=== PATIENT | female | born 1980 | race Hispanic/Latino ===

== ENCOUNTER 2019-08-02 22:31 | Emergency (ER) | payer BC, OTHER ==
--- OUTSIDE RECORDS SUMMARY | 2019-08-02 22:34 | XMS REPORT ---
:1980 Author Organization eClinicalWorks Care Team Providers Name Role Phone Maddie Tuttle Provider Role Unavailable Allergies No Known Allergies Problems Problem Type Condition Code Onset Dates Condition Status Problem Diabetes mellitus without E11.9 Active complication Medications Medication Code Code Instructions Start End Status Dosage System Date Date Xigduo XR [facility] 22412544460 10-1000 MG Active 1 tablet Orally Once a day Glimepiride [facility] 46535234407 2MG Orally Once Active 1 tablet a day with breakfast or the first main meal of the day Results No Known Results Summary Purpose eClinicalWorks Submission
--- OUTSIDE RECORDS SUMMARY | 2019-08-02 22:34 | XMS REPORT ---
:1980 Author Organization eClinicalWorks Care Team Providers Name Role Phone Maddie Tuttle Provider Role Unavailable Allergies, Adverse Reactions, Alerts Substance Reaction Event Type N.K.D.A. Info Not Available Non Drug Allergy Problems Problem Type Condition Code Onset Dates Condition Status Assessment Diabetes mellitus without E11.9 Active complication Problem Diabetes mellitus without E11.9 Active complication Medications Medication Code System Code Instructions Start End Date Status Dosage Date Glimepiride [facility] 10458708770 2MG Active TAKE ONE TABLET BY MOUTH ONCE DAILY Sprintec 28 [facility] 57466008048 0.25-35 MG-MCG Active 1 tablet Orally Once a day Xigduo XR [facility] 52509077500 10-1000 MG Active 1 tablet Orally Once a day Results No Known Results Summary Purpose eClinicalWorks Submission
--- OUTSIDE RECORDS SUMMARY | 2019-08-02 22:34 | XMS REPORT ---
:1980 Author Organization eClinicalWorks Care Team Providers Name Role Phone Melly Tuttle Provider Role Unavailable Allergies No Known Allergies Problems Problem Type Condition Code Onset Dates Condition Status Problem Diabetes mellitus without E11.9 Active complication Medications No Known Medications Results No Known Results Summary Purpose eClinicalWorks Submission
--- OUTSIDE RECORDS SUMMARY | 2019-08-02 22:34 | XMS REPORT ---
:1980 Author Organization eClinicalWorks Care Team Providers Name Role Phone Melly Tuttle Provider Role Unavailable Allergies, Adverse Reactions, Alerts Substance Reaction Event Type N.K.D.A. Info Not Available Non Drug Allergy Problems Problem Type Condition Code Onset Dates Condition Status Assessment Diabetes mellitus without E11.9 Active complication Problem Diabetes mellitus without E11.9 Active complication Medications Medication Code System Code Instructions Start End Date Status Dosage Date Sprintec 28 [facility] 52256387990 0.25-35 MG-MCG Active 1 tablet Orally Once a day Glimepiride [facility] 31547029032 2MG Active TAKE ONE TABLET BY MOUTH ONCE DAILY Xigduo XR [facility] 96737536613 10-1000 MG Active 1 tablet Orally Once a day Results No Known Results Summary Purpose eClinicalWorks Submission
[2019-08-02] MEDS ORDERED: TRAMADOL HCL 50 MG TAB ONE (23:42)
--- NOTE | 2019-08-03 00:22 | EDPHYS ---
Physician Documentation [facility] Name: Kim Jaeger Age: 38 yrs Sex: Female : 1980 Arrival Date: 08/02/2019 Time: 22:34 Bed 7 Private MD: ED Physician Shahab Del Rosario HPI: 08/03 00:17 This 38 yrs old Female presents to ER via Ambulatory with complaints of Knee tw4 Pain, Knee Injury. 00:17 The patient presents with an injury. The complaints affect the right knee. Context: The tw4 problem was sustained at home. Onset: The symptoms/episode began/occurred yesterday. Modifying factors: The symptoms are alleviated by remaining still, the symptoms are aggravated by movement, weight bearing, bending knee. Associated signs and symptoms: The patient has no apparent associated signs or symptoms. Severity of symptoms: At their worst the symptoms were moderate, in the emergency department the symptoms are unchanged. 04:31 Treatment prior to arrival includes: no previous treatment. 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 - Social history:: Smoking status: Patient/guardian denies using tobacco. - Ebola Screening: : Patient negative for fever greater than or equal to 101.5 degrees Fahrenheit, and additional compatible Ebola Virus Disease symptoms. ROS: 08/03 04:31 Constitutional: Negative for fever, chills, and weight loss, Eyes: Negative for injury, tw4 pain, redness, and discharge, Cardiovascular: Negative for chest pain, palpitations, and edema, Respiratory: Negative for shortness of breath, cough, wheezing, and pleuritic chest pain, Abdomen/GI: Negative for abdominal pain, nausea, vomiting, diarrhea, and constipation, Back: Negative for injury and pain, Skin: Negative for injury, rash, and discoloration, Neuro: Negative for headache, weakness, numbness, tingling, and seizure. MS/extremity: Positive for injury or acute deformity, contusion, decreased range of motion, pain, tenderness, of the right knee, Negative for abrasion, bite, deformity, ecchymosis, erythema, laceration. Exam: 04:31 Constitutional: This is a well developed, well nourished patient who is awake, alert, tw4 and in no acute distress. Head/Face: Normocephalic, atraumatic. Chest/axilla: Normal chest wall appearance and motion. Nontender with no deformity. No lesions are appreciated. Cardiovascular: Regular rate and rhythm with a normal S1 and S2. No gallops, murmurs, or rubs. Normal PMI, no JVD. No pulse deficits. Respiratory: Lungs have equal breath sounds bilaterally, clear to auscultation and percussion. No rales, rhonchi or wheezes noted. No increased work of breathing, no retractions or nasal flaring. Abdomen/GI: Soft, non-tender, with normal bowel sounds. No distension or tympany. No guarding or rebound. No evidence of tenderness throughout. 04:31 Musculoskeletal/extremity: Extremities: noted in the right knee: decreased ROM, pain. Vital Signs: 08/02 22:47 BP 142 / 83; Pulse 70; Resp 16 S; Temp 98.0(O); Pulse Ox 99% on R/A; Weight 77.11 kg jd3 (R); Height 5 ft. 3 in. (160.02 cm) (R); Pain 6/10; 23:35 BP 109 / 78; Pulse 83; Resp 15 S; Pulse Ox 100% on R/A; jd3 22:47 Body Mass Index 30.11 (77.11 kg, 160.02 cm) jd3 MDM: 22:54 Patient medically screened. tw4 08/03 04:31 Differential diagnosis: contusion. Data reviewed: vital signs, nurses notes. Data tw4 reviewed: radiologic studies, plain films. Test interpretation: by ED physician or midlevel provider: ECG. Counseling: I had a detailed discussion with the patient and/or guardian regarding: the historical points, exam findings, and any diagnostic results supporting the discharge/admit diagnosis, radiology results. Medication response: tramadol. Response to treatment: the patient's symptoms have mildly improved after treatment, and as a result, I will discharge patient. Special discussion: I discussed with the patient/guardian in detail that at this point there is no indication for admission to the hospital. It is understood, however, that if the symptoms persist or worsen the patient needs to return immediately for re-evaluation. 08/02 23:09 Order name: Knee Right 3 View XRAY jd3 08/03 00:17 Order name: Knee Immobilizer; Complete Time: 00:33 tw4 Administered Medications: 08/02 23:43 Drug: traMADol 50 mg Route: PO; jd3 08/03 00:33 Follow up: Response: No adverse reaction; RASS: Alert and Calm (0) jd3 Disposition: 08/03/19 00:21 Discharged to Home. Impression: Contusion of right knee. - Condition is Stable. - Discharge Instructions: Contusion. - Prescriptions for Ibuprofen 800 mg Oral Tablet - take 1 tablet by ORAL route every 8 hours As needed take with food; 30 tablet. Tramadol 50 mg Oral Tablet - take 1 tablet by ORAL route every 8 hours as needed; 12 tablet. - Medication Reconciliation Form, Thank You Letter, Antibiotic Education, Prescription Opioid Use form. - Follow up: Private Physician; When: Upon discharge from the Emergency Department; Reason: Recheck today's complaints, Continuance of care. - Problem is new. - Symptoms have improved. Signatures: Dispatcher [employer] Josafat Valles RN RN jd3 Wadley, Terrence, MD MD tw4 Corrections: (The following items were deleted from the chart) 00:26 08/02 22:56 Knee Left 3 View+RAD.RAD.BRZ ordered. [facility] 08/03 00:35 00:21 08/03/2019 00:21 Discharged to Home. Impression: Contusion of right knee. jd3 Condition is Stable. Forms are Medication Reconciliation Form, Thank You Letter, Antibiotic Education, Prescription Opioid Use. Follow up: Private Physician; When: Upon discharge from the Emergency Department; Reason: Recheck today's complaints, Continuance of care. Problem is new. Symptoms have improved. tw4
--- NOTE | 2019-08-03 00:22 | ER ---
Nurse's Notes [facility] Name: Kim Jaeger Age: 38 yrs Sex: Female : 1980 Arrival Date: 08/02/2019 Time: 22:34 Bed 7 Private MD: Diagnosis: Contusion of right knee Presentation: 08/02 22:44 Presenting complaint: Patient states: "I [place] movie [place] and my jd3 right knee is really hurting. I can walk ok, but it hurts a lot and it is hard to bend it.". Transition of care: patient was not received from another setting of care. Onset of symptoms was August 02, 2019. Risk Assessment: Do you want to hurt yourself or someone else? Patient reports no desire to harm self or others. Initial Sepsis Screen: Does the patient meet any 2 criteria? No. Patient's initial sepsis screen is negative. Does the patient have a suspected source of infection? No. Patient's initial sepsis screen is negative. Care prior to arrival: None. 22:44 Method Of Arrival: Ambulatory [facility] 22:44 Acuity: LEXI 4 jd3 Triage Assessment: 22:50 Injury Description: fall onto right knee. 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 - Social history:: Smoking status: Patient/guardian denies using tobacco. - Ebola Screening: : Patient negative for fever greater than or equal to 101.5 degrees Fahrenheit, and additional compatible Ebola Virus Disease symptoms. Screenin:50 Abuse screen: Denies threats or abuse. Nutritional screening: No deficits noted. jd3 Tuberculosis screening: No symptoms or risk factors identified. Fall Risk Ambulatory Aid- None/Bed Rest/Nurse Assist (0 pts). Gait- Normal/Bed Rest/Wheelchair (0 pts) Mental Status- Oriented to own ability (0 pts). Assessment: 22:48 General: Appears in no apparent distress. uncomfortable, Behavior is calm, cooperative, jd3 appropriate for age. Pain: Complains of pain in right knee Quality of pain is described as aching, tender. Neuro: Level of Consciousness is awake, alert, obeys commands, Oriented to person, place, time, situation. Cardiovascular: Denies chest pain, Capillary refill < 3 seconds Patient's skin is warm and dry. Respiratory: Airway is patent Respiratory effort is even, unlabored, Respiratory pattern is regular, symmetrical, Denies cough, shortness of breath. GI: No signs and/or symptoms were reported involving the gastrointestinal system. : No signs and/or symptoms were reported regarding the genitourinary system. EENT: No signs and/or symptoms were reported regarding the EENT system. Derm: Skin is intact, Skin is dry, Skin is normal, Skin temperature is warm. Musculoskeletal: Circulation, motion, and sensation intact. Range of motion: limited in right knee. 23:36 Reassessment: Patient appears in no apparent distress at this time. No changes from [facility] previously documented assessment. Patient and/or family updated on plan of care and expected duration. Pain level reassessed. Patient is alert, oriented x 3, equal unlabored respirations, skin warm/dry/pink. awaiting x-ray. 08/03 00:34 Reassessment: Patient appears in no apparent distress at this time. Patient and/or jd3 family updated on plan of care and expected duration. Pain level reassessed. Patient is alert, oriented x 3, equal unlabored respirations, skin warm/dry/pink. reported understanding of discharge instructions. Patient states feeling better. Vital Signs: 08/02 22:47 BP 142 / 83; Pulse 70; Resp 16 S; Temp 98.0(O); Pulse Ox 99% on R/A; Weight 77.11 kg jd3 (R); Height 5 ft. 3 in. (160.02 cm) (R); Pain 6/10; 23:35 BP 109 / 78; Pulse 83; Resp 15 S; Pulse Ox 100% on R/A; jd3 22:47 Body Mass Index 30.11 (77.11 kg, 160.02 cm) jd3 ED Course: 22:34 Patient arrived in ED. cf2 22:44 Josafat Gonzales RN is Primary Nurse. jd3 22:46 Triage completed. jd3 22:48 Arm band placed on. jd3 22:50 Patient has correct armband on for positive identification. Bed in low position. Call jd3 light in reach. Side rails up X 1. Adult w/ patient. 22:50 Ice pack to injury. jd3 22:54 Shahab Del Rosario MD is Attending Physician. tw4 08/03 00:26 Knee Right 3 View XRAY In Process Unspecified. EDMS 00:34 No provider procedures requiring assistance completed. Patient did not have IV access jd3 during this emergency room visit. Administered Medications: 08/02 23:43 Drug: traMADol 50 mg Route: PO; jd3 08/03 00:33 Follow up: Response: No adverse reaction; RASS: Alert and Calm (0) jd3 Outcome: 00:21 Discharge ordered by MD. tw4 00:34 Discharged to home ambulatory, with family. jd3 00:34 Condition: stable 00:34 Discharge instructions given to patient, family, Instructed on discharge instructions, follow up and referral plans. medication usage, Demonstrated understanding of instructions, follow-up care, medications, Prescriptions given X 2. 00:35 Patient left the ED. jd3 Signatures: Dispatcher [employer] Josafat Valles RN RN jd3 Shahab Del Rosario MD MD tw4 Mandi Lawrence cf2 Corrections: (The following items were deleted from the chart) 08/02 22:55 22:48 Musculoskeletal: Circulation, motion, and sensation intact. Range of motion: jd3 limited in left knee jd3
[2019-08-03 03:35] VITALS: TEMP 98
[2019-08-03 03:36] VITALS: BP 109/78; O2SAT 100
--- NOTE | 2019-08-03 08:11 | RAD REPORT ---
EXAM DESCRIPTION: RAD - Knee Right 3 View - 08/03/2019 12:02 am CLINICAL HISTORY: Right knee pain status post injury FINDINGS: No fracture or dislocation is seen.
== END 2019-08-03 00:35 | disposition home or self-care (01) ==
LOC: ER 22:31
DX: S80.01XA Contusion of right knee, initial encounter (principal); W18.30XA Fall on same level, unspecified, initial encounter; Y93.89 Activity, other specified; Y92.26 Movie house or cinema as the place of occurrence of the external cause
CPT/HCPCS: 99283

== ENCOUNTER 2020-05-07 19:06 | Emergency (ER) | payer BC ==
--- OUTSIDE RECORDS SUMMARY | 2020-05-07 19:08 | XMS REPORT ---
:1980 Author Organization eClinicalWorks Care Team Providers Name Role Phone Maddie Tuttle Provider Role Unavailable Allergies No Known Allergies Problems Problem Type Condition Code Onset Dates Condition Statu s Problem Diabetes mellitus without E11.9 Ac tive complication Problem BMI 31.0-31.9,adult Z68.31 Active Medications No Known Medications Results No Known Results Summary Purpose eClinicalWorks Submission
--- OUTSIDE RECORDS SUMMARY | 2020-05-07 19:08 | XMS REPORT | Summary of Care ---
:1980 Author Organization [facility] Address [address] [place] [address] Care Team Providers Name Role Phone Maddie Tuttle Primary Care Provider Reason for Visit Reason Comments New Evaluation (Routine) Status Reason Specialty Diagnoses / Referred By Referred To Procedures Contact Contact Closed IM-ENDOCRINOLOGY,DIAB Diagnoses New & DM Juanito Wharton Wentong, MD ETES & METABOLISM / Procedures CONSULT/REFERRAL ENDOCRINOLOGY NEW VISIT (FIRST TIME) B [address] [facility] [address] [facility] Diabetes & [place] [phone] Phone: Fax: Encounter Details Date Type Department Care Team Description 04/30/2020 Office Visit [facility] Shruthi Soto MD Uncontrolled type 2 Endocrinology- 2660 [facility] diabetes mellitus with [facility] hyperglycemia (Primary [address] [place], [place] [address]) [address], [id number] [place] [address] [phone] Allergies No Known Allergiesdocumented as of this encounter (statuses as of 04/30/2020) Medications Medication Sig Dispensed Refills Start Date End Date Status glimepiride 2 mg Take 1 tablet 90 tablet 1 04/30/2020 Active tabletIndications: by mouth with Uncontrolled type evening meal. 2 diabetes mellitus with hyperglycemia dulaglutide inject 1.5 mg 4 Syringe 4 04/30/2020 Act irina (TRULICITY) 1.5 under the mg/0.5 mL skin weekly. PnIjIndications: Uncontrolled type 2 diabetes mellitus with hyperglycemia metformin ER 750 Take 2 180 tablet 1 04/30/2020 A ctive mg 24 hr tablets by tabletIndications: mouth daily Uncontrolled type with 2 diabetes breakfast. mellitus with hyperglycemia Lancets (MICROLET Use as 100 Each 1 04/30/2020 A ctive LANCET) directed MiscIndications: daily Uncontrolled type 2 diabetes mellitus with hyperglycemia CONTOUR NEXT TEST Use as 100 Strip 1 04/30/2020 A ctive STRIPS directed stripIndications: daily Uncontrolled type 2 diabetes mellitus with hyperglycemia XIGDUO XR 10-1,000 TAKE 1 TABLET 0 02/11/2020 Discontinued mg TBph BY MOUTH ONCE 0 DAILY FOR 90 DAYS TRULICITY 0.75 0 04/29/2020 Disc ontinued mg/0.5 mL PnIj 0 glimepiride 2 mg 0 03/20/2020 Di scontinued tablet 0 (Reorder) blood sugar Use as 100 Strip 1 04/30/2020 Discont inued diagnostic directed 0 (Error) (ASCENSIA daily MICROFILL) stripIndications: Uncontrolled type 2 diabetes mellitus with hyperglycemia documented as of this encounter (statuses as of 04/30/2020) Active Problems Not on filedocumented as of this encounter (statuses as of 04/30/2020) Social History Tobacco Use Types Packs/Day Years Used Date Never Smoker Smokeless Tobacco: Never Used Alcohol Use Drinks/Week oz/Week Comments Yes Sex Assigned at Date Recorded Not on file COVID-19 Exposure Response Date Recorded In the last month, have you been in contact with No / Unsure 04/30/2020 1:38 PM CDT someone who was confirmed or suspected to have Coronavirus / COVID-19? documented as of this encounter Last Filed Vital Signs Vital Sign Reading Time Taken Comments Blood Pressure 112/80 04/30/2020 1:53 PM CDT Pulse 77 04/30/2020 1:53 PM CDT Temperature - - Respiratory Rate - - Oxygen Saturation 98% 04/30/2020 1:53 PM CDT Inhaled Oxygen Concentration - - Weight 77.7 kg (171 lb 6.4 oz) 04/30/2020 1:53 PM CDT Height 157.5 cm (5' 2") 04/30/2020 1:53 PM CDT Body Mass Index 31.35 04/30/2020 1:53 PM CDT documented in this encounter Patient Instructions Patient InstructionsShruthi Soto MD - 04/30/2020 1:30 PM CDT Restart glimepiride 2mg with dinner Increase Trulicity to 1.5mg weekly Stop Xugdo Start metformin Er 750mg two pills a day Target for sugar control Premeal glucose concentrations 90-110 mg/dL One-hour postmeal glucose concentrations no higher than 140 mg/dL Two-hour postmeal glucose concentrations no higher than 120 mg/dL A1C at 6 percent documented in this encounter Progress Notes Shruthi Soto MD - 04/30/2020 1:30 PM CDT CC establish care for type 2 DM HPI Patient is a 39 year old female who is here today for Diabetes Mellitus Type 2. Patient's diabetes is complicated by atherogenic diet and sedentary lifestyle. DM was diagnosed in 2009 and A1c has been in 7s range. She has been taking glimepiride and Xigduo in past few years. Glimepiride was switched to Trulicity in 02/2020 after A1C checked at 7.9 % Patient has no acute problems today. Patient has not checks blood glucoses for a while due to meternot functioning. New meter provided today The patient is not having problems with symptomatic hypoglycemia. Patient is compliant with medication regimen. Taking Trulicity 0.75mg weekly and Xigduo Xr 10-1000mg daily . However, she had frequent yeast infection this year which promoted Endo referral by her GYNDr Dio Patient is noncompliant with diet/exercise regimen.She still eats pizza/ sandwich as main meal Patient states she is still trying to conceive DIABETIC HEALTH MAINTENANCE Last Ophthalmology visit was 2 years no retinopathy in past . Patient on NEREYDA/ARB therapy - Contraindicated, trying to conceive Patient on ASA therapy - Contraindicatedtrying to conceive. Patient on Statin/Fibrate therapy - Contraindicated.trying to conceive Patient instructed about daily feet exams, last sensation exam was 04/30/2020 Patient has received Nutrition/Diet/Diabetes Education on 04/30/2020 HISTORY Past Medical History: Diagnosis Date Diabetes mellitus Past Surgical History: Procedure Laterality Date CHOLECYSTECTOMY Family History Problem Relation Age of Onset Diabetes Mother High cholesterol Mother Hypertension Mother Social History Socioeconomic History Marital status: Single Spouse name: Not on file Number of children: Not on file Years of education: Not on file Highest education level: Not on file Occupational History Not on file Social Needs Financial resource strain: Not on file Food insecurity Worry: Not on file Inability: Not on file Transportation needs Medical: Not on file Non-medical: Not on file Tobacco Use Smoking status: Never Smoker Smokeless tobacco: Never Used Substance and Sexual Activity Alcohol use: Yes Drug use: Never Sexual activity: Not on file Lifestyle Physical activity Days per week: Not on file Minutes per session: Not on file Stress: Not on file Relationships Social connections Talks on phone: Not on file Gets together: Not on file Attends tenriism service: Not on file Active member of club or organization: Not on file Attends meetings of clubs or organizations: Not on file Relationship status: Not on file Intimate partner violence Fear of current or ex partner: Not on file Emotionally abused: Not on file Physically abused: Not on file Forced sexual activity: Not on file Other Topics Concern Not on file Social History Narrative Not on file REVIEW OF SYSTEMS Constitutional: denies weight change, denies fatigue and hair loss Eyes: denies blurry vision, denies diplopia and denies pain. Neck: denies pain, denies swollen glands Cardiovascular: denies chest pain , denies irregular pulse and denies palpitations. Respiratory: denies dyspnea on exertion and denies shortness of breath. Gastrointestinal: denies abdominal pain, denies constipation and denies diarrhea. Genitourinary: + frequent yeast infection and denies dysuria. Musculoskeletal: denies back pain, denies muscle pain and denies weakness. Skin: denies dry skin and denies hair changes. Neuro: denies numbness , denies tingling and denies tremor. Psych: negative. Endocrine: denies goiter, denies hair loss, denies intolerance to cold, denies intolerance to heat, denies polydipsia, denies polyphagia and denies polyuria. PHYSICAL EXAM BP 112/80 (BP Location: Left arm, Patient Position: Sitting, BP CUFF SIZE: Adult Large) | Pulse 77| Ht 5' 2" (1.575 m) | Wt 171 lb 6.4 oz (77.7 kg) | SpO2 98% | BMI 31.35 kg/m General: alert, oriented times three, no apparent distress, appearing age appropriate. Skin: skin color and turgor are normal Head: normocephalic, no masses, lesions, tenderness or abnormalities. Eyes: anicteric sclera, pupils are equally round and reactive to light. Neck: +acanthosis nigricans Thyroid: normal size and consistency to palaption Lungs: good diaphragmatic excursion, lungs clear to auscultation bilaterally. Heart: regular rate and rhythm, no murmurs, gallops or rubs. Abdomen: abdomen soft, non-tender, normal active bowel sounds, + obese. Neuro: unremarkable without focal findings. Extremities/Musculoskeletal: no cyanosis, no edema . Sensory exam of the foot is normal. Monofilament exam with sensation Right: 5/5, Left: 5/5. Lesions absent Ulcers Absent Peripheral pulses present 2+. Outside lab 02/2020 CMP/CBC was done per patient A1C=7.9% ASSESSMENT/PLAN 1. Uncontrolled type 2 diabetes mellitus with hyperglycemia -A1C (target=6-7%): 7.9 (03/09) not well control in past few years 2/2 less compliance -glucose range: not checking - without hypoglycemia -complication: none -medication limitation: Xigduo cause yeast infection. Patient also trying to conceive will avoid meds with potential defect -diet:high carbs at time -exercise: no regular exercise Plan -reinterated to check glucose daily alternating fasting and 2 hours post meals -urged compliance with diet/exercise - discussed the need for better control in DM given patient is trying to conceive - glimepiride 2 mg tablet; Take 1 tablet by mouth with evening meal. Dispense: 90 tablet; Refill: 1 - dulaglutide (TRULICITY) 1.5 mg/0.5 mL PnIj; inject 1.5 mg under the skin weekly. Dispense: 4 Syringe; Refill: 4 - metformin ER 750 mg 24 hr tablet; Take 2 tablets by mouth daily with breakfast. Dispense: 180 tablet; Refill: 1 - Lancets (MICROLET LANCET) Misc; Use as directed daily Dispense: 100 Each; Refill: 1 - CONTOUR NEXT TEST STRIPS strip; Use as directed daily Dispense: 100 Strip; Refill: 1 Patient Instructions Restart glimepiride 2mg with dinner Increase Trulicity to 1.5mg weekly Stop Xugdo Start metformin Er 750mg two pills a day Target for sugar control Premeal glucose concentrations 90-110 mg/dL One-hour postmeal glucose concentrations no higher than 140 mg/dL Two-hour postmeal glucose concentrations no higher than 120 mg/dL A1C at 6 percent Plate methods introduced EDUCATION Counseled on this visit about:Glycemic/hemoglobin A1C targets Importance of adhering to the medical regimen outlined above Glucose monitoring and importance Daily exercise plan Weight loss documented in this encounter Plan of Treatment Date Type Specialty Care Team Description 07/30/2020 Office Visit Endocrinology Diabetes & Dustin Soto MD Metabolism [address] [place], [place] [address] Health Maintenance Due Date Last Done Comments HgA1C 1982 VARICELLA VACCINES (1 of 2 - 1982 2-dose childhood series) CREATININE (SERUM) 1991 EYE EXAM 1991 LDL-C 1991 URINE MICROALBUMIN 1991 FOOT EXAM 1999 DTaP,Tdap,and Td Vaccines (1 - 2000 Tdap) PAP SMEAR 2002 INFLUENZA VACCINE (#1) 2020 Depression Screening 04/30/2021 04/30/2020 PNEUMOCOCCAL 0-64 YEARS COMBINED Aged Out No longer eligible based on SERIES patient's age to complete this topic documented as of this encounter Results Not on filedocumented in this encounter Visit Diagnoses Diagnosis Uncontrolled type 2 diabetes mellitus wi th hyperglycemia - Primary documented in this encounter Insurance Payer Benefit Plan Subscriber ID Effective Dates Phone Address Type / Group BCBS OF [facility] [id number] 2018-Sherita [phone] [address] PPO/POS [facility] [id number] [place] [address] documented as of this encounter
--- OUTSIDE RECORDS SUMMARY | 2020-05-07 19:08 | XMS REPORT ---
:1980 Author Organization [employer] Care Team Providers Name Role Phone Maddie Tuttle Provider Role Unavailable Allergies, Adverse Reactions, Alerts Substance Reaction Event Type N.K.D.A. Info Not Available Non Drug Allergy Problems Problem Type Condition Code Onset Dates Condition Statu s Problem Diabetes mellitus without E11.9 Ac tive complication Problem BMI 31.0-31.9,adult Z68.31 Active Assessment Diabetes mellitus without E11.9 Ac tive complication Assessment BMI 31.0-31.9,adult Z68.31 Active Medications Medication Code Code Instructions Start End Status Dosage System Date Date Trulicity [facility] [id number] 0.75mg/0.5ml SQ Apr 01, Jun 30, Active on e once a week 2019 2019 injection Xigduo XR [facility] 06452710113 10-1000 MG Active 1 table t Orally Once a day Glimepiride [facility] [id number] 2 MG Active TAKE 1 TABLET BY MOUTH ONCE DAILY (TAKE WITH BREAKFAST OR THE FIRST MAIN MEAL OF THE DAY) Results No Known Results Summary Purpose eClinical[employer] Submission
--- OUTSIDE RECORDS SUMMARY | 2020-05-07 19:08 | XMS REPORT | Summary of Care ---
:1980 Author Organization [facility] Address [address] [place] [address] Care Team Providers Name Role Phone Maddie Tuttle Primary Care Provider Reason for Visit Reason Comments Rx Concern/Question Encounter Details Date Type Department Care Team Description 04/30/2020 Telephone [facility] Shruthi Soto MD Rx Concern/Question Endocrinology- [facility] [address] [place] [address] [phone] Allergies No Known Allergiesdocumented as of this encounter (statuses as of 05/01/2020) Medications Medication Sig Dispensed Refills Start Date End Date Status glimepiride 2 mg Take 1 tablet by 90 tablet 1 04/30/2020 Active tabletIndications: mouth with Uncontrolled type 2 evening meal. diabetes mellitus with hyperglycemia dulaglutide inject 1.5 mg 4 Syringe 4 04/30/2020 Act irina (TRULICITY) 1.5 mg/0.5 under the skin mL PnIjIndications: weekly. Uncontrolled type 2 diabetes mellitus with hyperglycemia metformin ER 750 mg 24 Take 2 tablets by 180 tablet 1 04/30/20 20 Active hr tabletIndications: mouth daily with Uncontrolled type 2 breakfast. diabetes mellitus with hyperglycemia Lancets (MICROLET Use as directed 100 Each 1 04/30/2020 Active LANCET) daily MiscIndications: Uncontrolled type 2 diabetes mellitus with hyperglycemia CONTOUR NEXT TEST Use as directed 100 Strip 1 04/30/2020 Active STRIPS daily stripIndications: Uncontrolled type 2 diabetes mellitus with hyperglycemia documented as of this encounter (statuses as of 05/01/2020) Active Problems Not on filedocumented as of this encounter (statuses as of 05/01/2020) Social History Tobacco Use Types Packs/Day Years [...] of this encounter Last Filed Vital Signs Not on filedocumented in this encounter Miscellaneous Notes Telephone Encounter - Jessika Myers RN - 05/01/2020 9:40 AM CDTPharmacy called. Prescription cancelled. Telephone Encounter - Shruthi Soto MD - 04/30/2020 6:22 PM CDTPlease call [facility] to cancel the Rx of blood sugar diagnostic (ASCENSIA MICROFILL) strip Wrong RX documented in this encounter Plan of Treatment Date Type Specialty Care Team Description 07/30/2020 Office Visit Endocrinology Diabetes & Dustin Soto MD Metabolism [address] [place] [address] [phone] Health Maintenance Due Date Last Done Comments HgA1C 1982 VARICELLA VACCINES (1 of 2 - 1982 2-dose childhood series) CREATININE (SERUM) 1991 EYE EXAM 1991 LDL-C 1991 URINE MICROALBUMIN 1991 DTaP,Tdap,and Td Vaccines (1 2000 - Tdap) PAP SMEAR 2002 INFLUENZA VACCINE (#1) 2020 Depression Screening 04/30/2021 04/30/2020 FOOT EXAM 04/30/2021 04/30/2020, 04/30/2020 PNEUMOCOCCAL 0-64 YEARS Aged Out No longe r eligible based COMBINED SERIES on patient's age to complete this to [facility] documented as of this encounter Results Not on filedocumented in this encounter Insurance Payer Benefit Plan Subscriber ID Effective Dates Phone Address Type / Group BCBS [facility] [id number] 2018-Prese [phone] [address] PPO/POS [place] [id number] [place] [address] documented as of this encounter
--- OUTSIDE RECORDS SUMMARY | 2020-05-07 19:08 | XMS REPORT | Summary of Care ---
:1980 Author Organization [facility] Address [address] [place] [address] Care Team Providers Name Role Phone Maddie Tuttle Primary Care Provider Reason for Visit Reason Comments New Evaluation (Routine) Status Reason Specialty Diagnoses / Referred By Referred To Procedures Contact Contact Closed IM-ENDOCRINOLOGY,DIAB Diagnoses New & DM Juanito Wharton Wentong, MD ETES & METABOLISM / Procedures CONSULT/REFERRAL ENDOCRINOLOGY NEW VISIT (FIRST TIME) B [address] [place] [place] [facility] [address] [facility] Diabetes & [place] [phone] Phone: Fax: Encounter Details Date Type Department Care Team Description 04/30/2020 Office Visit [facility] Shruthi Soto MD Uncontrolled type 2 Endocrinology- 2660 [facility] diabetes mellitus with [facility] hyperglycemia (Primary [address] [place], [place] [address]) [address], [address] [place] [address] [phone] Allergies No Known Allergiesdocumented as of [...] file Gets together: Not on file Attends evangelical service: Not on file Active member of [...] Diabetes & Dustin Soto MD Metabolism [address] [place], [place] 664[address] Health Maintenance Due Date Last Done Comments [...] Phone Address Type / Group BCBS OF [facility] [id number] 2018-Sherita [phone] [address] PPO/POS [facility] [id number] [place] [address] documented as of this encounter
--- OUTSIDE RECORDS SUMMARY | 2020-05-07 19:08 | XMS REPORT | Continuity of Care Document ---
:1980 Author Organization [facility] t Address [address] [place] [address] Care Team Providers Name Role Phone Shruthi Soto MD Attending Clinician Problems Condition Condition Condition Status Onset Resolution Last Treating Co mments Source Name Details Category Date Date Treatment Clinician Date Diabetes Diabetes Diagnosis Active [facility] - without without [facility] complicati complicati l on on Outpati ent Clinics BMI BMI Diagnosis Active [facility] 31.0-31.9, 31.0-31.9, Donna kes - adult adult [facility] Clin[facility] Allergies, Adverse Reactions, Alerts This patient has no known allergies or adverse reactions. Medications Ordered Filled Start Stop Current Ordering Indication Dosage Frequency Signature Comments Components Source Medication Medication Date Date Medication? Clinician (SIG) Name Name Grady Rasmussen 2019- Yes Maddie one [facility] 8-11 06-30 Sunflower injection [facility] - [facility] Clin[facility] Xigduo XR Xigduo XR 2017- No Maddie [address] [facility] 5-15 05-03 Sunflower [facility] Glimepiride Glimepiride Yes Maddie TAKE [address] [facility] Sunflower TABLET BY [facility] - MOUTH ONCE [facility] DAILY l (TAKE WITH Outpati BREAKFAST ent OR THE Clinics FIRST MAIN MEAL OF THE DAY) Procedures This patient has no known procedures. Encounters Start End Encounter Admission Attending Care Care Encounter Source Date/Time Date/Time Type Type Clinicians Facility Department ID 2020-05-02 2020-05-02 MARY Cody [id number] 00:00:00 00:00:00 Shruthi Lucia [id number] [place] [id number] Professio [phone] formerly [facility] 220 [facility] 2020-04-30 2020-04-30 Office Soto, [facility] [id number] 13:42:59 14:46:28 Visit Shruthi Lucia [id number] [place] [id number] Professio [phone] [facility] 220 [facility] 2020-04-30 2020-04-30 Telephone Soto, [facility] [id number] 00:00:00 00:00:00 Shruthi Lucia [id number] [place] [id number] Professio [phone] [facility] 220 [facility] 2020-04-01 2020-04-01 [facility] [id number] 11:40:00 11:40:00 [facility] Medicine Outpati ent Clinics 2020-02-26 2020-02-26 [facility] [id number] 14:51:00 14:51:00 [facility] Medicine Outpati ent Clinics 2020-02-15 2020-02-15 [facility] [id number] 11:37:00 11:37:00 [facility] Medicine Outpati ent Clinics 2019-09-26 2019-09-26 [facility] [id number] 08:40:00 08:40:00 [facility] Medicine Outpati ent Clinics 2019-07-03 2019-07-03 [facility] [id number] 11:59:00 11:59:00 [facility] Medicine Outpati ent Clinics 2019-03-30 2019-03-30 [facility] [id number] 08[facility]40:00 08:40:00 [facility] Medicine Outpati ent Clinics 2018-10-06 2018-10-06 [facility] [id number] 08:30:00 08:30:00 t [facility] Medicine Outpati ent Clinics 2018-09-06 2018-09-06 [facility] [id number] 16:15:00 16:15:00 [facility] Medicine Outpati ent Clinics 2018-04-12 2018-04-12 [facility] [id number] 10:24:00 10:24:00 t [facility] Medicine Outpati ent Clinics 2018-04-05 2018-04-05 [facility] [id number] 16:00:00 16:00:00 [facility] Medicine Outpati ent Clinics 2018-02-02 2018-02-02 [facility] [id number] 08:45:00 08:45:00 [facility] Medicine Outpati ent Clinics 2018-01-03 2018-01-03 [facility] [id number] 09:30:00 09:30:00 [facility] Medicine Outpati ent Clinics Results This patient has no known results.
--- OUTSIDE RECORDS SUMMARY | 2020-05-07 19:09 | XMS REPORT | Summary of Care ---
:1980 Author Organization [facility] Address [address] [place] [address] Care Team Providers Name Role Phone Maddie Tuttle Primary Care Provider Reason for Visit Reason Comments Medical Records Encounter Details Date Type Department Care Team Description 05/02/2020 Telephone [facility] Endocrinology- Shruthi Soto MD Medical Records [address] [address] [place] [address] [phone] Allergies No Known Allergiesdocumented as of this encounter (statuses as of 05/02/2020) Medications Medication Sig Dispensed Refills Start Date [...] as of this encounter (statuses as of 05/02/2020) Active Problems Not on filedocumented as of this encounter (statuses as of 05/02/2020) Social History Tobacco Use Types Packs/Day Years [...] this encounter Miscellaneous Notes Telephone Encounter - Gricel Hicks - 05/02/2020 8:24 AM CDTReceived medical records from Maddie Tuttle. Placed on nurses desk. documented in this encounter Plan of Treatment Date Type Specialty Care Team Description 07/30/2020 Office Visit Endocrinology Diabetes & Dustin Soto MD Metabolism [facility] [place] [address] Health Maintenance Due Date Last Done Comments [...] on patient's age to complete this to pic documented as of this encounter Results Not on filedocumented in this encounter Insurance Payer Benefit Plan Subscriber ID Effective Dates Phone Address Type / Group [facility] [id number] 2018-Sherita [phone] [address] PPO/POS [place] nt [id number] [place] [address] documented as of this encounter
[2020-05-07 21:42] LABS: Absolute Lymphocytes (CBC) 3.4 K/uL (0.7-4.9); Basophils % 0.7 % (0-1.3); Hematocrit 40.8 % (36.0-45.0); Lymphocytes % 31.4 % (15.3-44.8); MPV 9.8 fL (7.6-11.3); RBC Red Blood Cell Count 4.83 M/uL (3.86-4.86)
[2020-05-07] MEDS ORDERED: NA CHLORIDE 0.9% 1,000 ML ONE (21:53)
[2020-05-07 22:00] LABS: Urine Culture Reflex Order NOT NEEDED
[2020-05-07 22:00] LABS: Urine Blood NEGATIVE (NEG); Urine Glucose NEGATIVE (NEG); Urine Protein NEGATIVE (NEG); Urine pH 5.5 (5.0-7.0)
[2020-05-07 22:01] LABS: ALT/SGPT 41 U/L (12-78); AST/SGOT 24 U/L (15-37); Albumin 3.6 g/dL (3.4-5.0); Alkaline Phosphatase 85 U/L (45-117); BUN Blood Urea Nitrogen 9 mg/dL (7-18); Bicarbonate 25 mmol/L (21-32); Bilirubin Direct 0.2 mg/dL (0-0.2); Bilirubin Total 0.8 mg/dL (0.2-1.0); Glucose Level 109 mg/dL (74-106); Lipase 132 U/L (73-393); Potassium 3.8 mmol/L (3.5-5.1); Protein, Total 7.8 g/dL (6.4-8.2); Sodium Level 141 mmol/L (136-145)
[2020-05-07 22:02] LABS: Urine Bacteria <20 /HPF (<20); Urine RBC <5 /HPF (NONE SEEN)
[2020-05-07 22:06] LABS: Platelet Estimate ADEQ; White Blood Cell Scan OK (OK)
[2020-05-07 22:07] LABS: Blood Morphology Comment NOT SEEN (NOT SEEN)
--- NOTE | 2020-05-07 22:34 | EDPHYS ---
Physician Documentation [facility] Name: Kim Jaeger Age: 39 yrs Sex: Female : 1980 Arrival Date: 05/07/2020 Time: 19:07 Bed 16 Private MD: ED Physician Shahab Del Rosario HPI: 05/07 21:16 This 39 yrs old Female presents to ER via Ambulatory with complaints of snw Abdominal Pain, RIGHT SIDE PAIN. 21:16 The patient presents with abdominal pain in the epigastric area, in the upper abdomen, snw in the right upper quadrant. Onset: The symptoms/episode began/occurred gradually, 1 week(s) ago, and became worse and became persistent. The symptoms radiate to right back. Associated signs and symptoms: Pertinent positives: nausea. The symptoms are described as constant. Severity of pain: At its worst the pain was moderate. The patient has experienced a previous episode. The patient has not recently seen a physician. Sia 2 yrs ago. Historical: - Allergies: 19:15 No Known Allergies; ll1 - PMHx: 19:15 Diabetes - NIDDM; ll1 - PSHx: 19:15 None; ll1 - Immunization history:: Flu vaccine is not up to date. - Social history:: Smoking status: Patient denies any tobacco usage or history of. Patient/guardian denies using alcohol, street drugs. ROS: 21:16 Constitutional: Negative for fever, chills, and weight loss, Eyes: Negative for injury, snw pain, redness, and discharge, ENT: Negative for injury, pain, and discharge, Neck: Negative for injury, pain, and swelling, Cardiovascular: Negative for chest pain, palpitations, and edema, Respiratory: Negative for shortness of breath, cough, wheezing, and pleuritic chest pain, Back: Negative for injury and pain, : Negative for injury, bleeding, discharge, and swelling, MS/Extremity: Negative for injury and deformity, Skin: Negative for injury, rash, and discoloration, Neuro: Negative for headache, weakness, numbness, tingling, and seizure, Psych: Negative for depression, anxiety, suicide ideation, homicidal ideation, and hallucinations. 21:16 Abdomen/GI: Positive for abdominal pain, of the right upper quadrant. Exam: 21:15 Constitutional: This is a well developed, well nourished patient who is awake, alert, snw and in no acute distress. Head/Face: Normocephalic, atraumatic. Eyes: Pupils equal round and reactive to light, extra-ocular motions intact. Lids and lashes normal. Conjunctiva and sclera are non-icteric and not injected. Cornea within normal limits. Periorbital areas with no swelling, redness, or edema. ENT: Nares patent. No nasal discharge, no septal abnormalities noted. Tympanic membranes are normal and external auditory canals are clear. Oropharynx with no redness, swelling, or masses, exudates, or evidence of obstruction, uvula midline. Mucous membranes moist. Neck: Trachea midline, no thyromegaly or masses palpated, and no cervical lymphadenopathy. Supple, full range of motion without nuchal rigidity, or vertebral point tenderness. No Meningismus. Chest/axilla: Normal chest wall appearance and motion. Nontender with no deformity. No lesions are appreciated. Cardiovascular: Regular rate and rhythm with a normal S1 and S2. No gallops, murmurs, or rubs. Normal PMI, no JVD. No pulse deficits. Respiratory: Lungs have equal breath sounds bilaterally, clear to auscultation and percussion. No rales, rhonchi or wheezes noted. No increased work of breathing, no retractions or nasal flaring. Back: No spinal tenderness. No costovertebral tenderness. Full range of motion. Skin: Warm, dry with normal turgor. Normal color with no rashes, no lesions, and no evidence of cellulitis. MS/ Extremity: Pulses equal, no cyanosis. Neurovascular intact. Full, normal range of motion. Neuro: Awake and alert, GCS 15, oriented to person, place, time, and situation. Cranial nerves II-XII grossly intact. Motor strength 5/5 in all extremities. Sensory grossly intact. Cerebellar exam normal. Normal gait. Psych: Awake, alert, with orientation to person, place and time. Behavior, mood, and affect are within normal limits. 21:15 Abdomen/GI: Inspection: abdomen appears normal, Bowel sounds: normal, in the right upper quadrant, Palpation: mild abdominal tenderness, moderate abdominal tenderness, in the right upper quadrant. Vital Signs: 19:13 BP 126 / 85; Pulse 72; Resp 17; Temp 97.7; Pulse Ox 100% ; Pain 7/10; ll1 MDM: 20:40 Patient medically screened. snw 22:35 Data reviewed: vital signs, nurses notes. Data interpreted: Pulse oximetry: on room air snw is 100 %. Interpretation: normal. Counseling: I had a detailed discussion with the patient and/or guardian regarding: the historical points, exam findings, and any diagnostic results supporting the discharge/admit diagnosis, radiology results, the need for outpatient follow up, to return to the emergency department if symptoms worsen or persist or if there are any questions or concerns that arise at home. Special discussion: Based on the patient's Hx, exam, and Dx evaluation, there is no indication for emergent surgery or inpatient Tx. It is understood by the patient/guardian that if the Sx's persist or worsen they need to return immediately for re-evaluation. Based on the history and exam findings, there is no indication for further emergent testing or inpatient evaluation. I discussed with the patient/guardian the need to see the primary care provider for further evaluation of the symptoms. 05/07 20:35 Order name: Urine Culture [facility] 05/07 20:35 Order name: Urine Microscopic Only; Complete Time: 22:05 snw 05/07 21:07 Order name: Urine Dipstick--Ancillary (enter results); Complete Time: 22:05 mw2 05/07 21:07 Order name: Urine --Ancillary (enter results); Complete Time: 22:05 mw2 05/07 21:08 Order name: Basic Metabolic Panel; Complete Time: 22:05 snw 05/07 21:08 Order name: CBC with Diff; Complete Time: 22:09 snw 05/07 20:35 Order name: Urine Test (obtain specimen); Complete Time: 21:35 snw 05/07 20:35 Order name: Urine Dipstick-Ancillary (obtain specimen); Complete Time: 21:35 snw 05/07 21:08 Order name: Hepatic Function; Complete Time: 22:05 snw 05/07 21:08 Order name: Lipase; Complete Time: 22:05 snw 05/07 21:25 Order name: US Abdomen Limited snw 05/07 22:06 Order name: CBC Smear Scan; Complete Time: 22:09 EDMS 05/07 21:08 Order name: IV Saline Lock; Complete Time: 21:35 snw 05/07 21:08 Order name: Labs collected and sent; Complete Time: 21:35 snw Administered Medications: 23:03 Drug: Bentyl 20 mg Route: PO; jb4 23:09 Drug: NS 0.9% 1000 ml Route: IV; Rate: 1 bolus; Site: right antecubital; jb4 Disposition: 05/08 02:53 Co-signature as Attending Physician, Shahab Del Rosario MD I agree with the assessment and 4 plan of care. Disposition: 05/07/20 22:33 Discharged to Home. Impression: Biliary colic. - Condition is Stable. - Discharge Instructions: Biliary Colic, Adult, Rehydration, Adult, [place] Diet. - Prescriptions for Bentyl 20 mg Oral Tablet - take 1 tablet by ORAL route every 6 hours As needed; 20 tablet. - Work release form, Medication Reconciliation Form, Thank You Letter, Antibiotic Education, Prescription Opioid Use form. - Follow up: Emergency Department; When: As needed; Reason: Worsening of condition. Follow up: Private Physician; When: 2 - 3 days; Reason: Recheck today's complaints, Continuance of care, Re-evaluation by your physician. Signatures: Dispatcher [employer] EDMS Zoila Garcia, POWER SHOVEL ENGINEER-C POWER SHOVEL ENGINEER-Csnw Blaine Mcintosh RN RN jb4 Shahba Del Rosario MD MD tw4 Cecily Muñoz RN RN ls4 Shimon Guillaume RN RN ll1 Corrections: (The following items were deleted from the chart) 05/07 23:18 22:33 05/07/2020 22:33 Discharged to Home. Impression: Biliary colic. Condition is ls4 Stable. Forms are Medication Reconciliation Form, Thank You Letter, Antibiotic Education, Prescription Opioid Use. Follow up: Emergency Department; When: As needed; Reason: Worsening of condition. Follow up: Private Physician; When: 2 - 3 days; Reason: Recheck today's complaints, Continuance of care, Re-evaluation by your physician. snw
--- NOTE | 2020-05-07 22:34 | ER ---
Nurse's Notes [facility] Name: Kim Jaeger Age: 39 yrs Sex: Female : 1980 Arrival Date: 05/07/2020 Time: 19:07 Bed 16 Private MD: Diagnosis: Biliary colic Presentation: 05/07 19:13 Chief complaint: Patient states: RUQ/R flank pain for 10 days. + nausea, no fever. ll1 Coronavirus screen: Client denies travel out of the [place] in the last 14 days. At this time, the client does not indicate any symptoms associated with coronavirus-19. Ebola Screen: Patient denies travel to an Ebola-affected area in the 21 days before illness onset. Initial Sepsis Screen: Does the patient meet any 2 criteria? No. Patient's initial sepsis screen is negative. Risk Assessment: Do you want to hurt yourself or someone else? Patient reports no desire to harm self or others. Onset of symptoms was April 27, 2020. 19:13 Method Of Arrival: Ambulatory ll1 19:13 Acuity: LEXI 3 ll1 Triage Assessment: 19:13 General: Appears uncomfortable, Behavior is calm, cooperative. Pain: Complains of pain ll1 in R flank Quality of pain is described as aching, Pain began 10 days Is continuous. Neuro: No deficits noted. Cardiovascular: No deficits noted. Respiratory: No deficits noted. GI: Abdomen is flat, Bowel sounds present X 4 quads. Abd is soft Abdomen is tender to palpation in right upper quadrant Reports upper abdominal pain, nausea, R flank pain Patient currently denies constipation. Historical: - Allergies: 19:15 No Known Allergies; ll1 - PMHx: 19:15 Diabetes - NIDDM; ll1 - PSHx: 19:15 None; ll1 - Immunization history:: Flu vaccine is not up to date. - Social history:: Smoking status: Patient denies any tobacco usage or history of. Patient/guardian denies using alcohol, street drugs. Screenin:50 Abuse screen: Denies threats or abuse. Denies injuries from another. ls4 19:50 Nutritional screening: No deficits noted. Tuberculosis screening: No symptoms or risk ls4 factors identified. Fall Risk None identified. Assessment: 21:40 General: Appears uncomfortable, Behavior is calm, cooperative. Pain: Complains of pain ls4 in right upper quadrant Pain currently is 7 out of 10 on a pain scale. Alleviated by medications, Aggravated by increased activity, repositioning. Cardiovascular: No deficits noted. Respiratory: No deficits noted. Vital Signs: 19:13 BP 126 / 85; Pulse 72; Resp 17; Temp 97.7; Pulse Ox 100% ; Pain 7/10; ll1 ED Course: 19:07 Patient arrived in ED. cf2 19:15 Triage completed. ll1 19:15 Arm band placed on. ll1 19:50 Patient has correct armband on for positive identification. Bed in low position. Call ls4 light in reach. Side rails up X 1. Pulse ox on. NIBP on. Verbal reassurance given. Diet: Patient is NPO. 20:20 Zoila Garcia FNP-C is PHCP. snw 20:20 Shahab Del Rosario MD is Attending Physician. snw 21:14 Cecily Muñoz, RN is Primary Nurse. ls4 21:20 No provider procedures requiring assistance completed. Initial lab(s) drawn, by ma, ls4 sent to lab. Inserted saline lock: 22 gauge in right antecubital area, using aseptic technique. Blood collected. Patient maintains SpO2 saturation greater than 95% on room air. 21:55 US Abdomen Limited In Process Unspecified. EDMS Administered Medications: 23:03 Drug: Bentyl 20 mg Route: PO; jb4 23:09 Drug: NS 0.9% 1000 ml Route: IV; Rate: 1 bolus; Site: right antecubital; jb4 Outcome: 22:33 Discharge ordered by . snw 23:18 Patient left the ED. ls4 Addendum: 05/11/2020 11:45 Addendum: Culture Results: Positive urine culture. Patient was not prescribed i w antibiotics at discharge. Report given to JOLEEN for further evaluation and then to therapist's assistant for follow up with patient. Phone call Prescription called-in to pharmacy of choice. called in Cipro 500 mg PO BID X 10 days, #20, no refills. Signatures: Dispatcher [employer] EDMS Zoila Garcia FNP-C FNP-CsnHoney Hodge RN RN Blaine Mcintosh RN RN jb4 Cecily Muñoz RN RN ls4 Mandi Lawrence cf2 Shimon Guillaume RN RN 1 Corrections: (The following items were deleted from the chart) 05/07 23:09 21:20 NS 0.9% 1000 ml IV at 1 bolus in right antecubital ls4 jb4
[2020-05-07] MEDS ORDERED: DICYCLOMINE HCL 10 MG CAP ONE (23:12)
[2020-05-07 23:26] VITALS: BP 126/85; TEMP 97.7; O2SAT 100
--- NOTE | 2020-05-08 08:45 | RAD REPORT ---
EXAM DESCRIPTION: US - Abdomen Exam Limited - 05/07/2020 10:07 pm CLINICAL HISTORY: ABD PAIN COMPARISON: No comparisons FINDINGS: The gallbladder is surgically absent. The common bile duct is normal measuring 6 mm. The liver demonstrates no findings of intrahepatic biliary dilatation. IMPRESSION: Cholecystectomy. Normal size common bile duct.
== END 2020-05-07 23:18 | disposition home or self-care (01) ==
LOC: ER 19:06
DX: K80.50 Calculus of bile duct without cholangitis or cholecystitis without obstruction (principal); E11.9 Type 2 diabetes mellitus without complications
CPT/HCPCS: 87088; 85025; 87086; 80048; 36415; 81025; 80076; 87077; 87186; 83690; 76705; 99284; J7030; 81003; 81015

== ENCOUNTER 2021-09-10 20:30 | Emergency (ER) | payer BC ==
--- NOTE | 2021-09-10 22:00 | RAD REPORT ---
EXAM DESCRIPTION: RAD - Knee Left 3 View - 09/10/2021 9:35 pm CLINICAL HISTORY: trauma COMPARISON: No comparisons FINDINGS: Mild soft tissue swelling is seen about the patella. No acute fracture or dislocation. No joint effusion.
--- NOTE | 2021-09-10 22:01 | RAD REPORT ---
EXAM DESCRIPTION: RAD - Ankle Right 3 View - 09/10/2021 9:35 pm CLINICAL HISTORY: trauma COMPARISON: No comparisons FINDINGS: Mild soft tissue swelling is seen about the right ankle. No acute fracture evident. Small posterior and plantar calcaneal spurs.
--- NOTE | 2021-09-10 23:26 | EDPHYS ---
Physician Documentation [facility] Name: Kim Carvalho Age: 41 yrs Sex: Female : 1980 Arrival Date: 09/10/2021 Time: 20:35 Bed 14 Private MD: ED Physician Addison Lindo HPI: 09/10 20:56 This 41 yrs old Female presents to ER via Ambulatory with complaints of Knee mh7 Injury, Ankle Injury. 20:57 The patient presents with an injury, pain, that is acute. The complaints affect the mh7 left knee, right ankle. Context: The problem was sustained at home, resulted from the patient falling, while walking, the patient can fully bear weight, the patient is able to ambulate, with mild difficulty, Problem is a result from a previous injury: No. Onset: The symptoms/episode began/occurred yesterday. Modifying factors: The symptoms are alleviated by nothing. the symptoms are aggravated by weight bearing. Associated signs and symptoms: Pertinent negatives calf tenderness, fever, nausea, numbness, rash, tingling, vomiting, warmth, weakness. Treatment prior to arrival includes: over the counter medications, aspirin. Severity of symptoms: At their worst the symptoms were moderate, last night, in the emergency department the symptoms have improved, mildly. 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 - Social history:: Smoking status: Patient denies any tobacco usage or history of. Patient uses alcohol, occasionally. ROS: 20:57 Constitutional: Negative for fever, chills, and weight loss, Eyes: Negative for injury, mh7 pain, redness, and discharge, ENT: Negative for injury, pain, and discharge, Neck: Negative for injury, pain, and swelling, Cardiovascular: Negative for chest pain, palpitations, and edema, Respiratory: Negative for shortness of breath, cough, wheezing, and pleuritic chest pain, Abdomen/GI: Negative for abdominal pain, nausea, vomiting, diarrhea, and constipation, Back: Negative for injury and pain, : Negative for injury, bleeding, discharge, and swelling, Skin: Negative for injury, rash, and discoloration, Neuro: Negative for headache, weakness, numbness, tingling, and seizure, Psych: Negative for depression, anxiety, suicide ideation, homicidal ideation, and hallucinations, Allergy/Immunology: Negative for hives, rash, and allergies, Endocrine: Negative for neck swelling, polydipsia, polyuria, polyphagia, and marked weight changes, Hematologic/Lymphatic: Negative for swollen nodes, abnormal bleeding, and unusual bruising. Exam: 20:57 Constitutional: This is a well developed, well nourished patient who is awake, alert, mh7 and in no acute distress. Head/Face: Normocephalic, atraumatic. Neck: Trachea midline, no thyromegaly or masses palpated, and no cervical lymphadenopathy. Supple, full range of motion without nuchal rigidity, or vertebral point tenderness. No Meningismus. Chest/axilla: Normal chest wall appearance and motion. Nontender with no deformity. No lesions are appreciated. Cardiovascular: Regular rate and rhythm with a normal S1 and S2. No gallops, murmurs, or rubs. Normal PMI, no JVD. No pulse deficits. Respiratory: Lungs have equal breath sounds bilaterally, clear to auscultation and percussion. No rales, rhonchi or wheezes noted. No increased work of breathing, no retractions or nasal flaring. Abdomen/GI: Soft, non-tender, with normal bowel sounds. No distension or tympany. No guarding or rebound. No evidence of tenderness throughout. Back: No spinal tenderness. No costovertebral tenderness. Full range of motion. Skin: Warm, dry with normal turgor. Normal color with no rashes, no lesions, and no evidence of cellulitis. 20:57 Neuro: Awake and alert, GCS 15, oriented to person, place, time, and situation. Cranial nerves II-XII grossly intact. Motor strength 5/5 in all extremities. Sensory grossly intact. Cerebellar exam normal. Normal gait. Psych: Awake, alert, with orientation to person, place and time. Behavior, mood, and affect are within normal limits. 20:57 Musculoskeletal/extremity: Extremities: noted in the left knee: contusion, tenderness, noted in the right ankle: swelling, tenderness, ROM: limited active range of motion due to pain, in the right ankle and left knee, limited passive range of motion due to pain, in the right ankle and left knee, Circulation is intact in all extremities. Sensation intact. Compartment Syndrome exam of affected extremity: is normal. no numbness, no tingling, no sensation deficit, no palor, no weak pulses, Joints: the right ankle and left knee displays painful range of motion, tenderness, Weight bearing: able to fully bear weight, mild limp, Tendon exam: specific tendon testing normal through active and passive range of motion DVT Exam: no pain, no swelling, no tenderness, negative Homans' sign noted on exam, no appreciated bluish discoloration, no erythema, no increased warmth, Calves: are non-tender, have equal circumference. Vital Signs: 20:42 BP 130 / 90; Pulse 83; Resp 18 S; Temp 98.2(O); Pulse Ox 100% on R/A; Weight 79.38 kg as6 (R); Height 5 ft. 3 in. (160.02 cm) (R); Pain 7/10; 21:50 BP 122 / 85 LA Sitting (auto/reg); Pulse 72 MON; Resp 18 S; Temp 98.6(O); Pulse Ox 100% tk1 ; Pain 7/10; 22:07 Pain 2/10; tk1 20:42 Body Mass Index 31.00 (79.38 kg, 160.02 cm) as6 MDM: 23:23 Differential diagnosis: dislocation, closed fracture, contusion, sprain, strain. Data [facility] reviewed: vital signs, nurses notes, radiologic studies, plain films. Data interpreted: Pulse oximetry: on room air is 100 %. Interpretation: normal. Counseling: I had a detailed discussion with the patient and/or guardian regarding: the historical points, exam findings, and any diagnostic results supporting the discharge/admit diagnosis, radiology results, the need for outpatient follow up, a orthopedic surgeon, to return to the emergency department if symptoms worsen or persist or if there are any questions or concerns that arise at home. Response to treatment: the patient's symptoms have markedly improved after treatment. 23:25 Patient medically screened. 7 09/10 20:56 Order name: Knee Left 3 View XRAY; Complete Time: 22:20 [facility] 09/10 20:56 Order name: Ankle Right 3 View XRAY; Complete Time: 22:20 [facility] 09/10 23:23 Order name: Aircast Ankle Splint; Complete Time: 23:44 [facility] 09/10 23:23 Order name: Crutches; Complete Time: 23:44 [facility] Administered Medications: 21:49 Drug: Bryan (HYDROcodone-acetaminophen) 5 mg-325 mg 1 tabs Route: PO; tk1 22:07 Follow up: Pain 10/01 Adult tk1 Disposition Summary: 09/10/21 23:25 Discharge Ordered Location: Home [facility] Problem: new [facility] Symptoms: have improved [facility] Condition: Stable [facility] Diagnosis - Contusion, left knee [facility] - Sprain, right ankle 7 Followup: [facility] - With: Private Physician - When: 1 - 2 days - Reason: Worsening of condition, Recheck today's complaints, Continuance of care, Re-evaluation by your physician Followup: [facility] - With: Cody Brewster MD - When: 2 - 3 days - Reason: Worsening of condition, Recheck today's complaints Discharge Instructions: - Discharge Summary Sheet [facility] - Crutch Use, Adult, [id number] [facility] - Ankle Sprain, [id number] [facility] - Contusion, [id number] [facility] Forms: - Medication Reconciliation Form [facility] - Thank You Letter [facility] - Antibiotic Education [facility] - Prescription Opioid Use [facility] Prescriptions: - Ibuprofen 800 mg Oral Tablet - take 1 tablet by ORAL route every 8 hours As needed take with food; 15 tablet; [facility] Refills: 0, Product Selection Permitted Signatures: Dispatcher [employer] Addison Malloy MD MD 7 Aidan Presley, RN RN as6 Hien Olivera tk1
--- NOTE | 2021-09-10 23:26 | ER ---
Nurse's Notes [facility] Name: Kim Carvalho Age: 41 yrs Sex: Female : 1980 Arrival Date: 09/10/2021 Time: 20:35 Bed 14 Private MD: Diagnosis: Contusion, left knee;Sprain, right ankle Presentation: 09/10 20:42 Chief complaint: Patient states: "I fell yesterday and twisted my ankle and somehow hit as6 my knee" c/o pain to left knee and right ankle, pt missed a step going down stairs. Coronavirus screen: At this time, the client does not indicate any symptoms associated with coronavirus-19. Ebola Screen: No symptoms or risks identified at this time. Initial Sepsis Screen: Does the patient meet any 2 criteria? No. Patient's initial sepsis screen is negative. Does the patient have a suspected source of infection? No. Patient's initial sepsis screen is negative. Risk Assessment: Do you want to hurt yourself or someone else? Patient reports no desire to harm self or others. Onset of symptoms was September 09, 2021. 20:42 Method Of Arrival: Ambulatory as6 20:42 Acuity: LEXI 4 as6 CLIENT SUPPORT CONSULTANT: 20:46 LMP 07/2021 as6 Historical: - Allergies: 20:45 No Known Allergies; as6 - Home Meds: 20:45 metformin 750 mg Oral Tb24 2 tabs once daily [Active]; Glipizide Oral once daily as6 [Active]; - PMHx: 20:45 Diabetes - NIDDM; as6 - PSHx: 20:45 Cholecystectomy; as6 - Immunization history:: Client reports having NOT received the Covid vaccine. - Social history:: Smoking status: Patient denies any tobacco usage or history of. Patient uses alcohol, occasionally. Screenin:17 Abuse screen: Denies threats or abuse. Denies injuries from another. Nutritional tk1 screening: No deficits noted. Tuberculosis screening: No symptoms or risk factors identified. Fall Risk Fall in past 12 months (25 points). No secondary diagnosis (0 pts). No IV (0 pts). Ambulatory Aid- None/Bed Rest/Nurse Assist (0 pts). Gait- Impaired (20 pts.). Mental Status- Oriented to own ability (0 pts). Total Otero Fall Scale indicates No Risk (0-24 pts). Assessment: 21:13 General: Appears uncomfortable, well groomed, well nourished, Behavior is calm, tk1 cooperative, appropriate for age, Reports. Pain: Complains of pain in lateral aspect of right knee, right ankle and dorsum of right foot Pain currently is 7 out of 10 on a pain scale. Quality of pain is described as aching, Pain began 1 day ago. Is continuous, Alleviated by rest, Aggravated by weight bearing. Neuro: No deficits noted. Cardiovascular: No deficits noted. Respiratory: No deficits noted. GI: No deficits noted. : No deficits noted. Musculoskeletal: Capillary refill < 3 seconds, Range of motion: limited in right ankle Swelling present in right ankle and lateral aspect of right foot Bruising to right foot. Injury Description: Bruise sustained to lateral aspect of right foot. 21:16 Reassessment: xrays done. tk1 23:14 Reassessment: No changes from previously documented assessment. Patient and/or family tk1 updated on plan of care and expected duration. Pain level reassessed. Pain: Denies pain. 23:42 Reassessment: D/C per MD order. Discharge/Prescription instructions given to patient tk1 and Spouse. Verbalized understanding. Vital Signs: 20:42 BP 130 / 90; Pulse 83; Resp 18 S; Temp 98.2(O); Pulse Ox 100% on R/A; Weight 79.38 kg as6 (R); Height 5 ft. 3 in. (160.02 cm) (R); Pain 7/10; 21:50 BP 122 / 85 LA Sitting (auto/reg); Pulse 72 MON; Resp 18 S; Temp 98.6(O); Pulse Ox 100% tk1 ; Pain 7/10; 22:07 Pain 2/10; tk1 20:42 Body Mass Index 31.00 (79.38 kg, 160.02 cm) as6 ED Course: 20:35 Patient arrived in ED. wm 20:45 Triage completed. as6 20:46 Arm band placed on. as6 20:50 Addison Lindo MD is Attending Physician. mh7 21:12 Hien Olivera is Primary Nurse. tk1 21:18 Bed in low position. Call light in reach. Side rails up X2. Adult w/ patient. tk1 21:18 No provider procedures requiring assistance completed. tk1 21:35 Knee Left 3 View XRAY In Process Unspecified. EDMS 21:35 Ankle Right 3 View XRAY In Process Unspecified. EDMS 23:24 Cody Brewster MD is Referral Physician. [facility] 23:42 Crutch training done. Air stirrup applied to right ankle. tk1 Administered Medications: 21:49 Drug: [place] (HYDROcodone-acetaminophen) 5 mg-325 mg 1 tabs Route: PO; tk1 22:07 Follow up: Pain 10/01 Adult tk1 Outcome: 23:25 Discharge ordered by . mh7 23:43 Discharged to home with crutches. tk1 23:43 Condition: stable 23:43 Discharge instructions given to patient, family, Instructed on discharge instructions, follow up and referral plans. no driving heavy equipment, medication usage, crutch walking, Demonstrated understanding of instructions, follow-up care, medications, crutch walking, splint care, Prescriptions given X 1. 23:44 Patient left the ED. tk1 Signatures: Dispatcher [employer] Addison Malloy MD MD 7 Suzette Bishop Ashby, RN RN as6 Hien Olivera tk1
[2021-09-11 01:07] VITALS: O2SAT 100
[2021-09-11 01:12] VITALS: BP 122/85; TEMP 98.6
== END 2021-09-10 23:44 | disposition home or self-care (01) ==
LOC: ER 20:30
DX: S93.401A Sprain of unspecified ligament of right ankle, initial encounter (principal); W18.30XA Fall on same level, unspecified, initial encounter; Y93.01 Activity, walking, marching and hiking; Y92.009 Unspecified place in unspecified non-institutional (private) residence as the place of occurrence of the external cause; E11.9 Type 2 diabetes mellitus without complications
CPT/HCPCS: 99284